=== PATIENT | female | born 1995 | race African-American/Black ===

== ENCOUNTER 2017-11-19 22:15 | Emergency (ER) | payer MEDICAID, OTHER ==
[2017-11-19 22:36] VITALS: BP 131/88
[2017-11-19] MEDS ORDERED: IBUPROFEN 800 MG TABLET PO ONE (23:13)
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
[2017-11-19] MEDS ORDERED: HYDROCODONE/ACETAMINOPHEN 5-325 MG TABLET PO ONE (23:46)
--- NOTE | 2017-11-20 00:07 | RADIOLOGY REPORT (SQ) ---
EXAM DESCRIPTION: XR FOOT 3 OR MORE VIEWS COMPLETED DATE/TME: 11/19/2017 23:12 CLINICAL HISTORY: 22 years, Female, pain and swelling to left great toe and foot COMPARISON: None. FINDINGS: 3 views of the left foot. Acute comminuted intra-articular fracture involving the mid to distal left first proximal phalanx. Normal osseous mineralization. No other fractures identified. Tarsals and metatarsals are appropriately aligned. IMPRESSION: 1. Acute comminuted intra-articular fracture involving the mid to distal left first proximal phalanx. 2011 [employer]- All Rights Reserved
== END 2017-11-20 00:20 | disposition home or self-care (01) ==
LOC: ER 22:15
DX: S92.415A Nondisplaced fracture of proximal phalanx of left great toe, initial encounter for closed fracture (principal); M79.674 Pain in right toe(s); M79.89 Other specified soft tissue disorders; W50.0XXA Accidental hit or strike by another person, initial encounter; F17.210 Nicotine dependence, cigarettes, uncomplicated
CPT/HCPCS: 99283; 73630; J3490

== ENCOUNTER 2018-09-08 16:17 | Emergency (ER) | payer MEDICAID ==
[2018-09-08] MEDS ORDERED: ACETAMINOPHEN 325 MG TABLET PO ONE (18:01)
--- NOTE | 2018-09-08 18:06 | ER Document Report ---
ED Medical Screen (RME) - General Chief Complaint: Abdominal Pain Stated Complaint: ABDOMINAL PAIN Time Seen by Provider: 09/08/18 17:47 Mode of Arrival: Ambulatory Information source: Patient TRAVEL OUTSIDE OF THE [place] IN LAST 30 DAYS: No - HPI Notes: 09/08/18 18:01 Patient is a 23-year-old female currently 4 months presents to the emergency department with report of left lower quadrant pain greater than suprapubic pain that came on this morning, somewhat crampy in nature. The patient reports associated nausea but no vomiting. She denies any flank pain or diarrhea. She states she had a bowel movement earlier today but it was a first bowel movement in 3 days. No vaginal bleeding. The patient denies any cough, congestion, fever. Minimal vaginal discharge that she states may be consistent with her state. Physical exam shows interactive alert 23-year-old female no gross distress HEENT atraumatic normocephalic Neck supple nontender Cardiovascular regular rate and rhythm without appreciable murmur gallop or rub Lungs coarse breath sounds no wheezes or rails Abdomen soft mild tender LLQ and suprapubic region. No rebound or guarding. No pulsatile mass. Back no CVA tenderness. Question if this may be an ovarian cyst, which the patient expresses concern about. Must also assess for viability and for possible placental abruption. Also question constipation as an etiology given the location and crampy nature and recent constipation as described. Ultrasound and lab work and urinalysis. Please see partner's note for further care and evaluation. 09/08/18 18:03 09/08/18 18:08 - Related Data Allergies/Adverse Reactions: No Known Allergies Allergy (Verified 12/24/15 03:39) Past Medical History - Social History Chew tobacco use (# tins/day): No Frequency of alcohol use: None Drug Abuse: None Renal/ Medical History: Denies: Hx Peritoneal Dialysis GI Medical History: Reports: Hx Gastroesophageal Reflux Disease Musculoskeltal Medical History: Reports Hx Musculoskeletal Trauma Psychiatric Medical History: Reports: Hx Anxiety, Hx Depression Traumatic Medical History: Reports: Hx Fractures - Toe Past Surgical History: Reports: Hx Oral Surgery - Dental surgery - Immunizations Hx Diphtheria, Pertussis, Tetanus Vaccination: Yes Physical Exam - Vital signs Vitals: Temp Pulse Resp BP Pulse Ox 98.8 F 103 H 18 130/59 H 98 09/08/18 16:26 09/08/18 16:26 09/08/18 16:26 09/08/18 16:26 09/08/18 16:26 Course - Vital Signs Vital signs: Temp Pulse Resp BP Pulse Ox 98.8 F 103 H 18 130/59 H 98 09/08/18 16:26 09/08/18 16:26 09/08/18 16:26 09/08/18 16:26 09/08/18 16:26
[2018-09-08 19:12] LABS: ABSOLUTE EOSINOPHILS # (AUTO) 0.1 10^3/uL (0.0-0.6); ABSOLUTE LYMPHOCYTES (AUTO) 2.8 10^3/uL (0.5-4.7); ABSOLUTE MONOCYTES (AUTO) 0.4 10^3/uL (0.1-1.4); ABSOLUTE NEUT (AUTO) 6.9 10^3/uL (1.7-8.2); BASOPHILS % (AUTO) 0.2 % (0-2); EOSINOPHILS % (AUTO) 1.2 % (0-6); HEMATOCRIT 37.8 % (36.0-47.0); MEAN CORPUSCULAR HEMOGLOBIN 32.6 pg (27.0-33.4); MEAN CORPUSCULAR HGB CONC 34.6 g/dL (32.0-36.0); MEAN CORPUSCULAR VOLUME 94 fl (80-97); PLATELET COUNT 393 10^3/uL (150-450); RED BLOOD COUNT 4.01 10^6/uL (3.72-5.28); RED CELL DISTRIBUTION WIDTH 12.4 % (11.5-14.0); SEGMENTED NEUTROPHILS % (AUTO) 67.6 % (42-78); TOTAL CELLS COUNTED % (AUTO) 100 %; WHITE BLOOD COUNT 10.2 10^3/uL (4.0-10.5)
[2018-09-08 19:23] LABS: APPEARANCE,URINE CLOUDY; BILIRUBIN,URINE NEGATIVE (NEGATIVE); GLUCOSE, URINE NEGATIVE (NEGATIVE); KETONES,URINE NEGATIVE (NEGATIVE); LEUKOCYTE ESTERASE,URINE NEGATIVE (NEGATIVE); NITRITE,URINE NEGATIVE (NEGATIVE); PROTEIN,URINE NEGATIVE (NEGATIVE); URINE SPECIFIC GRAVITY 1.026
[2018-09-08 19:24] LABS: ALANINE AMINOTRANSFERASE 63 U/L (9-52); ALKALINE PHOSPHATASE 92 U/L (38-126); ANION GAP 9 (5-19); ASPARTATE AMINO TRANSFERASE 38 U/L (14-36); BILIRUBIN,DIRECT 0.1 mg/dL (0.0-0.4); BILIRUBIN,TOTAL 0.4 mg/dL (0.2-1.3); BLOOD UREA NITROGEN 9 mg/dL (7-20); CALCIUM 10.4 mg/dL (8.4-10.2); CARBON DIOXIDE 26 mmol/L (22-30); CHLORIDE 102 mmol/L (98-107); COLOR,URINE YELLOW; GLUCOSE 84 mg/dL (75-110); LIPASE 27.8 U/L (23-300); POTASSIUM 4.7 mmol/L (3.6-5.0); SODIUM 136.7 mmol/L (137-145); TOTAL PROTEIN 7.1 g/dL (6.3-8.2)
[2018-09-08 20:42] LABS: CHLAM PCR NOT DETECTED (NOT DETECT); GON PCR NOT DETECTED (NOT DETECT)
--- NOTE | 2018-09-08 20:43 | ER Document Report ---
ED General - General Chief Complaint: Abdominal Pain Stated Complaint: ABDOMINAL PAIN Time Seen by Provider: 09/08/18 17:47 Mode of Arrival: Ambulatory Information source: Patient Notes: This is a 23-year-old female who is 4 para 3, 4 months who presents to the emergency room with left lower quadrant pain since this morning which is been sharp in nature. Patient does state that she is been constipated lately. She is taking the vitamins with iron. She denies any vaginal bleeding. She denies any nausea, vomiting or diarrhea. She denies any fever. TRAVEL OUTSIDE OF THE [place] IN LAST 30 DAYS: No - HPI Onset: This morning Onset/Duration: Gradual Quality of pain: Achy Severity: Mild Pain Level: 1 Associated symptoms: denies: Chills, Fever, Shortness of breath Exacerbated by: Denies Relieved by: Denies Similar symptoms previously: No Recently seen / treated by doctor: No - Related Data Allergies/Adverse Reactions: No Known Allergies Allergy (Verified 12/24/15 03:39) Past Medical History - General Information source: Patient - Social History Smoking Status: Current Every Day Smoker Cigarette use (# per day): Yes Chew tobacco use (# tins/day): No Frequency of alcohol use: None Drug Abuse: None Lives with: Family Family History: Reviewed & Not Pertinent Patient has suicidal ideation: No Patient has homicidal ideation: No - Medical History Medical History: Negative Renal/ Medical History: Denies: Hx Peritoneal Dialysis GI Medical History: Reports: Hx Gastroesophageal Reflux Disease Musculoskeletal Medical History: Reports Hx Musculoskeletal Trauma Psychiatric Medical History: Reports: Hx Anxiety, Hx Depression Traumatic Medical History: Reports: Hx Fractures - Toe Past Surgical History: Reports: Hx Oral Surgery - Dental surgery - Immunizations Hx Diphtheria, Pertussis, Tetanus Vaccination: Yes Review of Systems - Review of Systems Constitutional: denies: Chills, Fever EENT: No symptoms reported Cardiovascular: denies: Heart racing Respiratory: denies: Cough, Short of breath Gastrointestinal: No symptoms reported, Constipation Genitourinary: No symptoms reported Female Genitourinary: No symptoms reported Musculoskeletal: No symptoms reported Skin: No symptoms reported Hematologic/Lymphatic: No symptoms reported Neurological/Psychological: No symptoms reported Physical Exam - Vital signs Vitals: Temp Pulse Resp BP Pulse Ox 98.8 F 103 H 18 130/59 H 98 09/08/18 16:26 09/08/18 16:26 09/08/18 16:26 09/08/18 16:26 09/08/18 16:26 Notes: Physical exam: GENERAL: Patient is alert and oriented x3, no acute distress. Her blood pressu re is 130/59, pulse 103, respiratory rate 18, O2 sat 98%. HEAD: Atraumatic, normocephalic. EYES: Pupils equal round and reactive to light, extraocular movements intact, sclera anicteric, conjunctiva are normal. ENT: TMs normal, nares patent, oropharynx clear without exudates. Moist mucous membranes. NECK: Normal range of motion, supple without obvious mass or JVD. LUNGS: Breath sounds clear to auscultation bilaterally and equal. No wheezes rales or rhonchi. HEART: Regular rate and rhythm without murmurs, rubs or gallops. ABDOMEN: Soft, consistent with 16 weeks , normoactive bowel sounds. No tenderness to palpation. No guarding, no rebound. EXTREMITIES: No edema. NEUROLOGICAL: Cranial nerves II through XII grossly intact. Normal speech, moving all extremities. PSYCH: Normal mood, normal affect. SKIN: Warm, Dry, normal turgor, no rashes or lesions noted. Course - Re-evaluation Re-evalutation: 09/08/18 21:58 I discussed the results of the ultrasound with the patient. On repeat exam, her abdomen is soft and nontender. The patient is very hungry and asking me whether she can Eat. - Vital Signs Vital signs: Temp Pulse Resp BP Pulse Ox 98.4 F 80 18 130/64 H 100 09/08/18 22:23 09/08/18 22:23 09/08/18 22:23 09/08/18 22:23 09/08/18 22:23 - Laboratory Result Diagrams: 09/08/18 18:48 09/08/18 18:48 Laboratory results interpreted by me: 09/08/18 09/08/18 18:48 18:48 Sodium 136.7 L Creatinine 0.50 L Calcium 10.4 H AST 38 H ALT 63 H Urine Urobilinogen 2.0 H Urine Ascorbic Acid 20 H - Diagnostic Test Radiology reviewed: Reports reviewed - Ultrasound shows a 12-week gestational f etus with a good heartbeat of 155 Discharge - Discharge Clinical Impression: Constipation, Round ligament pain Condition: Stable Disposition: HOME, SELF-CARE Instructions: Constipation ([facility]), Pelvic Pain in and Round Ligament Pain ([facility]) Additional Instructions: As we discussed, the ultrasound showed a 12-week gestational baby. There is a good heartbeat. There is no obvious ovarian cyst. See the instruction sheet on round ligament pain as well as constipation. Your blood work looked quite good. I want you to follow-up with your OB doctor as planned. Return to the emergency room for worsening pain or bleeding Prescriptions: Polyethylene Glycol 3350 [Miralax Powder 17 gm/Packet] 1 packet PO DAILY #7 pkg
--- NOTE | 2018-09-08 21:38 | RADIOLOGY REPORT (SQ) ---
EXAM DESCRIPTION: US LESS THAN 14 WEEKS COMPLETED DATE/TME: 09/08/2018 17:58 CLINICAL HISTORY: 23 years, Female, 4 months , LLQ pain COMPARISON: None. TECHNIQUE: Transabdominal first trimester ultrasound LIMITATIONS: None. FINDINGS: The uterus measures 12.8 x 9.8 x 10.2 cm. There is a single, live intrauterine gestation. Heart tones obtained at 155 bpm. Current ultrasound age is 12 weeks 1 day. Mean crown-rump length is 5.34 cm. The maternal right ovary is not well seen likely due to its position in the pelvis. Maternal left ovary measures 4 x 2.2 cm. Normal flow to the left ovary. No adnexal cyst or mass. No free fluid IMPRESSION: Single, live intrauterine gestation with current ultrasound age 12 weeks 1 day. Nonemergent follow-up recommended copyright 2010 [employer]- All Rights Reserved
[2018-09-08 22:26] VITALS: BP 130/64
== END 2018-09-08 22:25 | disposition home or self-care (01) ==
LOC: ER 16:17
DX: O26.892 Other specified pregnancy related conditions, second trimester (principal); R10.9 Unspecified abdominal pain; R10.32 Left lower quadrant pain; K59.00 Constipation, unspecified; O99.332 Smoking (tobacco) complicating pregnancy, second trimester; Z3A.16 16 weeks gestation of pregnancy
CPT/HCPCS: 99284; 36415; 87086; 83690; 85025; 80053; 81001; 87491; 87591; 76801; J3490

== ENCOUNTER 2018-10-11 18:23 | Emergency (ER) | payer MEDICAID ==
[2018-10-11] MEDS ORDERED: ACETAMINOPHEN 325 MG TABLET PO ONE (18:52)
--- NOTE | 2018-10-11 19:17 | RADIOLOGY REPORT (SQ) ---
EXAM DESCRIPTION: FINGER LEFT COMPLETED DATE/TIME: 10/11/2018 7:08 pm REASON FOR STUDY: L thumb pain, fell/fighting COMPARISON: None. NUMBER OF VIEWS: Three views. TECHNIQUE: AP, lateral, and oblique images acquired of the left thumb LIMITATIONS: None. FINDINGS: MINERALIZATION: Normal. BONES: Acute avulsion fracture, radial aspect left thumb proximal phalanx base, along the ulnar jacques ateral ligament attachment at the 1st MCP joint. SOFT TISSUES: No soft tissue swelling. No foreign body. OTHER: No other significant finding. IMPRESSION: Acute avulsion fracture, radial aspect left thumb proximal phalanx base, along the ulna r collateral ligament attachment at the 1st MCP joint. TECHNICAL DOCUMENTATION: JOB ID: [id number] [employer]- All Rights Reserved Reading location - IP/workstation name: [email or web address]
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
[2018-10-11 19:46] VITALS: BP 126/61
== END 2018-10-11 19:40 | disposition home or self-care (01) ==
LOC: ER 18:23
DX: S62.515A Nondisplaced fracture of proximal phalanx of left thumb, initial encounter for closed fracture (principal); S63.642A Sprain of metacarpophalangeal joint of left thumb, initial encounter; W19.XXXA Unspecified fall, initial encounter; Y93.89 Activity, other specified; F17.200 Nicotine dependence, unspecified, uncomplicated
CPT/HCPCS: 99283; 73140; 29125; J3490

== ENCOUNTER 2019-03-02 23:48 | Outpatient (CLI) | payer MEDICAID ==
[2019-03-03 01:00] LABS: APPEARANCE,URINE SLIGHTLY-CLOUDY; BILIRUBIN,URINE SMALL (NEGATIVE); GLUCOSE, URINE 50 mg/dL (NEGATIVE); KETONES,URINE TRACE mg/dL (NEGATIVE); LEUKOCYTE ESTERASE,URINE LARGE (NEGATIVE); NITRITE,URINE NEGATIVE (NEGATIVE); PROTEIN,URINE 30 mg/dL (NEGATIVE); URINE SPECIFIC GRAVITY 1.034
[2019-03-03 01:04] LABS: COLOR,URINE YELLOW
[2019-03-03 01:22] LABS: URINE AMPHETAMINES SCREEN NEGATIVE; URINE BARBITURATES SCREEN NEGATIVE; URINE BENZODIAZEPINES SCREEN NEGATIVE; URINE MARIJUANA (THC) SCREEN NEGATIVE; URINE METHADONE SCREEN NEGATIVE; URINE PHENCYCLIDINE SCREEN NEGATIVE
[2019-03-03 01:24] LABS: URINE COCAINE SCREEN UNCONFIRMED POSITIVE
[2019-03-03 01:36] LABS: ABSOLUTE EOSINOPHILS # (AUTO) 0.2 10^3/uL (0.0-0.6); ABSOLUTE LYMPHOCYTES (AUTO) 2.9 10^3/uL (0.5-4.7); ABSOLUTE MONOCYTES (AUTO) 0.6 10^3/uL (0.1-1.4); ABSOLUTE NEUT (AUTO) 6.6 10^3/uL (1.7-8.2); BASOPHILS % (AUTO) 0.1 % (0-2); EOSINOPHILS % (AUTO) 1.5 % (0-6); HEMATOCRIT 32.1 % (36.0-47.0); MEAN CORPUSCULAR HEMOGLOBIN 31.6 pg (27.0-33.4); MEAN CORPUSCULAR HGB CONC 34.3 g/dL (32.0-36.0); MEAN CORPUSCULAR VOLUME 92 fl (80-97); MONOCYTES % (AUTO) 6.2 % (3-13); PLATELET COUNT 422 10^3/uL (150-450); RED BLOOD COUNT 3.48 10^6/uL (3.72-5.28); RED CELL DISTRIBUTION WIDTH 12.6 % (11.5-14.0); SEGMENTED NEUTROPHILS % (AUTO) 64.2 % (42-78); TOTAL CELLS COUNTED % (AUTO) 100 %; WHITE BLOOD COUNT 10.3 10^3/uL (4.0-10.5)
[2019-03-03 03:23] LABS: CHLAM PCR NOT DETECTED (NOT DETECT)
[2019-03-06 07:05] LABS: HEPATITIS C VIRUS AB >11.0 s/co ratio (0.0-0.9); HEPATITS B SURFACE ANTIGEN Negative (Negative)
== END 2019-03-03 01:42 | disposition home or self-care (01) ==
LOC: LC 23:48
PROVIDERS: ATTEND Obstetrics & Gynecology Gynecology
PROC: 4A1HXCZ Monitoring of Products of Conception, Cardiac Rate, External Approach (ICD-10-PCS; principal; 2019-03-02)
DX: O47.1 False labor at or after 37 completed weeks of gestation (principal); Z3A.37 37 weeks gestation of pregnancy
CPT/HCPCS: 59025; 86900; 86901; 36415; 86850; 85025; 81005; 86762; 86592; 87340; 86701; 80307; 80353; 87491; 87591; 86803; 86804; 84112; G0480

== ENCOUNTER 2019-03-21 03:07 | Inpatient (IN) | payer MEDICAID ==
[2019-03-21] MEDS ORDERED: LIDOCAINE 1% INJ-PF (10 MG/ML) 30 ML SDV ONE ×2 (03:23→03:28)
[2019-03-21] MEDS ORDERED: OXYTOCIN 10 UNIT/ML VIAL ONE ×2 (03:23→03:28)
[2019-03-21] MEDS ORDERED: OXYTOCIN/NORMAL SALINE 0 UNIT/0 ML RTUINJ ONE (03:23)
[2019-03-21] MEDS ORDERED: MISOPROSTOL 0.2 MG TABLET ONE ×2 (03:23→03:28)
[2019-03-21] MEDS ORDERED: PENICILLIN G-K 5 MILLION UNIT VIAL ONE (03:28)
[2019-03-21] MEDS ORDERED: OXYTOCIN/NORMAL SALINE 20 UNIT/1,000 ML RTUINJ ONE (03:28)
[2019-03-21 03:55] LABS: ABSOLUTE EOSINOPHILS # (AUTO) 0.1 10^3/uL (0.0-0.6); ABSOLUTE LYMPHOCYTES (AUTO) 2.5 10^3/uL (0.5-4.7); ABSOLUTE MONOCYTES (AUTO) 0.7 10^3/uL (0.1-1.4); ABSOLUTE NEUT (AUTO) 6.3 10^3/uL (1.7-8.2); BASOPHILS % (AUTO) 0.2 % (0-2); EOSINOPHILS % (AUTO) 1.1 % (0-6); HEMATOCRIT 34.4 % (36.0-47.0); HEMOGLOBIN 11.9 g/dL (12.0-15.5); LYMPHOCYTES % (AUTO) 25.5 % (13-45); MEAN CORPUSCULAR HEMOGLOBIN 31.6 pg (27.0-33.4); MEAN CORPUSCULAR HGB CONC 34.6 g/dL (32.0-36.0); MEAN CORPUSCULAR VOLUME 91 fl (80-97); MONOCYTES % (AUTO) 7.4 % (3-13); PLATELET COUNT 436 10^3/uL (150-450); RED BLOOD COUNT 3.76 10^6/uL (3.72-5.28); RED CELL DISTRIBUTION WIDTH 12.5 % (11.5-14.0); SEGMENTED NEUTROPHILS % (AUTO) 65.8 % (42-78); TOTAL CELLS COUNTED % (AUTO) 100 %; WHITE BLOOD COUNT 9.6 10^3/uL (4.0-10.5)
--- NOTE | 2019-03-21 04:40 | Admission Physical ---
Datetime Report Generated by CPN: 03/21/2019 04:40 CURRENT ADMISSION Chief Complaint: Uterine Contractions Indication for Induction: Not Applicable Admit Impression : Term, Intrauterine Admit Plan: Initiate Labor Protocol ALLERGIES Medication Allergies: No Medication Allergies: No Known Allergies (03/03/2019) Latex: No Latex Allergies Food Allergies: none Environmental Allergies: none OBSTETRICAL HISTORY EDC: 03/21/2019 00:00 : 3 Para: 2 Gestational Diabetes: No Rh Sensitization: No Incompetent Cervix: No MORENITA: No Infertility: No ART Treatment: No Uterine Anomaly: No IUGR: No Hx Previous C/S: No Macrosomia: No Hx Loss/Stillborn: No PIH: No Hx : No Placenta Previa/Abruption: No Depression/PP Depression: No PTL/PROM: No Post Hemorrhage: No Obstetrical History Comments: - 2013 9lbs 3 oz G2- 2015 8lbs 8 oz G3- current, [facility], limited care SEE RECORDS Alcohol: No Marijuana : No Cocaine: Yes Other Illicit Drugs: No Cigarettes: Current Some Day Smoker. [id number] MEDICAL HISTORY Diabetes: No Blood Transfusion: No Pulmonary Disease (Asthma, TB): No Breast Disease: No Hypertension: No Certified Retinal Angiographer Surgery: No Heart Disease: No Hosp/Surgery: No Autoimmune Disorder: No Anesthetic Complications: No Kidney Disease: No Abnormal Pap Smear: Yes Neuro/Epilepsy: No Psychiatric Disorders: No Other Medical Diseases: No Hepatitis/Liver Disease: Yes Significant Family History: No Varicosities/Phlebitis: No Trauma/Violence : No Thyroid Dysfunction: No Medical History Comments: hep c positive INFECTIOUS HISTORY Gonorrhea: No Genital Herpes: No Chlamydia: No Tuberculosis: No Syphilis: No Hepatitis: Yes HIV/AIDS Exposure: No Rash or Viral Illness: No HPV: Yes Infectious History Comments: HPV-2019 PHYSICAL EXAM General: Normal HEENT: Normal Neurologic: Normal Thyroid: Normal Heart: Normal Lungs: Normal Breast: Deferred Back: Normal Abdomen: Normal Genitourinary Exam: Normal Extremities: Normal DTRs: Normal Pelvic Type: Adequate FETUS A EGA: 40.0 PLANS FOR LABOR AND DELIVERY Labor and Delivery: None Pain Management: None Feeding Preference: Both Benefit of Breast Feed Discussed: Yes Circumcision: Yes INFORMED CONSENT Signature: with User ID: [email or web address]
[2019-03-21] MEDS ORDERED: PROMETHAZINE HCL INJ 25 MG/1 ML VIAL IV PRN (04:46)
[2019-03-21] MEDS ORDERED: DIPHENHYDRAMINE HCL 25 MG CAPSULE PO PRN (04:46)
[2019-03-21] MEDS ORDERED: OXYTOCIN/NORMAL SALINE 20 UNIT/1,000 ML RTUINJ IV PRN (04:46)
[2019-03-21] MEDS ORDERED: NA PHOS,M-B/NA PHOS,DI-BA (ADULT) 133 ML ENEMA PR PRN (04:46)
[2019-03-21] MEDS ORDERED: DIPH/PERTUSS(ACELL)/TETANUS VAC/PF 0.5 ML SYR (>=10YO) IM PRN (04:46)
[2019-03-21] MEDS ORDERED: BENZOCAINE/MENTHOL AEROSOL SPRAY 56 ML TOP PRN (04:46)
[2019-03-21] MEDS ORDERED: DIBUCAINE 1% OINTMENT 56 GM TP PRN (04:46)
[2019-03-21] MEDS ORDERED: PROMETHAZINE HCL 25 MG SUPP.RECT PR PRN (04:46)
[2019-03-21] MEDS ORDERED: PSEUDOEPHEDRINE HCL 30 MG TABLET PO PRN (04:46)
[2019-03-21] MEDS ORDERED: ZOLPIDEM TARTRATE 5 MG TABLET PO PRN (04:46)
[2019-03-21] MEDS ORDERED: ACETAMINOPHEN 650 MG SUPP.RECT PR PRN (04:46)
[2019-03-21] MEDS ORDERED: MEASLES,MUMPS&RUBELLA VACC/PF 0.5 ML VIAL SUBCUT PRN (04:46)
[2019-03-21] MEDS ORDERED: PROMETHAZINE HCL 25 MG TABLET PO PRN (04:46)
[2019-03-21] MEDS ORDERED: GLYCERIN/WITCH HAZEL LEAF 1 EACH MED..WIPE TP PRN (04:46)
[2019-03-21] MEDS ORDERED: MAGNESIUM HYDROXIDE SUSP 30 ML UDCUP PO PRN (04:46)
[2019-03-21] MEDS ORDERED: ACETAMINOPHEN WITH CODEINE #3 TABLET ONE (04:52)
[2019-03-21] MEDS ORDERED: IBUPROFEN 800 MG TABLET ONE (04:52)
[2019-03-21] MEDS: IBUPROFEN 800 MG TABLET PO SCH ×3 (05:29→23:29)
--- NOTE | 2019-03-21 06:21 | Delivery Summary ---
Del Sum A-C Datetime Report Generated by CPN: 03/21/2019 06:20 DELIVERY PERSONNEL DELIVERY PERSONNEL: [id number] Delivery Doctor:: Jose Garsia MD Labor and Delivery Nurse:: Kenyatta Sun RNregular senior care provider Nurse:: Nila Rich RN Nursery Nurse:: Jolene Tabares RN MATERNAL INFORMATION Delivery Anesthesia: None Medications After Delivery: Pitocin Bolus-Please Comment; Pitocin Drip 20 Units/1000ml NSS Delivery QBL: 200 Maternal Complications: Precipitous Labor (<3hrs) Other Maternal Complications: drug abuse LABOR SUMMARY EDC: 03/21/2019 00:00 No. Babies in Womb: 1 Attempted: No Labor Anesthesia: None LABOR INFORMATION Reason for Induction: Not Applicable Onset of Labor: 03/21/2019 03:00 Complete Dilatation: 03/21/2019 04:28 Oxytocin: N/A Group B Beta Strep: unknown Antibiotics # of Doses: 1 Antibiotics Time of Last Dose: 337 Name of Antibiotic Given: PCN Steroids Given: None Reason Steroids Not Administered: Not Applicable MEMBRANES Membranes Rupture Method: Spontaneous Rupture of Membranes: 03/21/2019 04:29 Length of Rupture (hr): 0.05 Amniotic Fluid Color: Particulate Meconium Amniotic Fluid Amount: Moderate Amniotic Fluid Odor: Normal STAGES OF LABOR Stage 1 hr: 1 Stage 1 min: 28 Stage 2 hr: 0 Stage 2 min: 4 Stage 3 hr: 0 Stage 3 min: 2 Total Time in Labor hr: 1 Total Time in Labor min: 34 VAGINAL DELIVERY Episiotomy: None Laceration #1: None Laceration Repair: Not Applicable Sponge Count Correct: N/A Sharps Count Correct: N/A CSECTION DELIVERY Primary Indication: N/A Secondary Indication: N/A CSection Incidence: N/A Labor: N/A Elective: N/A CSection Incision: N/A BABY A INFORMATION Infant Delivery Date/Time: 03/21/2019 04:32 Method of Delivery: Vaginal Born in Route : No : N/A Forceps: N/A Vacuum Extraction: N/A Shoulder Dystocia : No PRESENTATION/POSITION BABY A Presentation: Cephalic Cephalic Presentation: Vertex Vertex Position: Right Occipital Anterior Breech Presentation: N/A PLACENTA INFORMATION BABY A Placenta Delivery Time : 03/21/2019 04:34 Placenta Method of Delivery: Spontaneous Placenta Status: Delivered SCORES BABY A Heart Rate 1 min: >100 bpm Resp Effort 1 min: Good Cry Reflex Irritability 1 min: Cough or Sneeze or Pulls Away Muscle Tone 1 min: Active Motion Color 1 min: Blue/Pale Resuscitation Effort 1 min: Tactile Stimulation SCORE 1 MIN: 8 Heart Rate 5 min: >100 bpm Resp Effort 5 min: Good Cry Reflex Irritability 5 min: Cough or Sneeze or Pulls Away Muscle Tone 5 min: Active Motion Color 5 min: Body [place], Extremities Blue Resuscitation Effort 5 min: Tactile Stimulation SCORE 5 MIN: 9 INFANT INFORMATION BABY A Gestational Age at Delivery: 40.0 Gestational Status: Full Term- 39- 40.6 Weeks Infant Outcome : Liveborn Infant Condition : Stable Infant Sex: Male IDENTIFICATION BABY A Verification Date/Time: 03/21/2019 05:36 ID Band Number: [id number] Mother's Name Verified: Yes Infant RN Verifying : Tony Sun RN and C Raysa RN WEIGHT/LENGTH BABY A Infant Birthweight (gm): 3603 Weight (lb): 7 Infant Weight (oz): 15 Length (in): 20.50 Length (cm): 52.07 CORD INFORMATION BABY A No. Cord Vessels: 3 Nuchal Cord : N/A Cord Blood Taken: Yes-For Storage (Mom's Blood type +) Infant Suction: None ASSESSMENT BABY A Complications: None Physical Findings at Delivery: Within Normal Limits Respirations: Appears Normal Skin to Skin: Yes Skin to Skin Time (min): 60 Transferred To: Remains with Mother BABY B INFORMATION : N/A SIGNATURES Signature: with User ID: [email or web address]
[2019-03-21 07:42] LABS: APPEARANCE,URINE SLIGHTLY-CLOUDY; BILIRUBIN,URINE NEGATIVE (NEGATIVE); COLOR,URINE YELLOW; GLUCOSE, URINE NEGATIVE (NEGATIVE); KETONES,URINE NEGATIVE (NEGATIVE); LEUKOCYTE ESTERASE,URINE MODERATE (NEGATIVE); NITRITE,URINE NEGATIVE (NEGATIVE); PROTEIN,URINE 30 mg/dL (NEGATIVE); URINE SPECIFIC GRAVITY 1.012; UROBILINOGEN,URINE NEGATIVE mg/dL (<2.0)
[2019-03-21 08:02] LABS: URINE AMPHETAMINES SCREEN NEGATIVE; URINE BARBITURATES SCREEN NEGATIVE; URINE BENZODIAZEPINES SCREEN NEGATIVE; URINE COCAINE SCREEN NEGATIVE; URINE MARIJUANA (THC) SCREEN NEGATIVE; URINE METHADONE SCREEN NEGATIVE; URINE PHENCYCLIDINE SCREEN NEGATIVE
[2019-03-21] MEDS: PRENATAL VITAMIN W DHA CAPSULE PO SCH (09:04)
[2019-03-21] MEDS: DOCUSATE SODIUM 100 MG CAPSULE PO SCH ×2 (09:04→17:09)
[2019-03-21] MEDS: FAMOTIDINE 20 MG TABLET PO SCH ×2 (09:04→23:29)
[2019-03-21] MEDS: ACETAMINOPHEN WITH CODEINE #3 TABLET PO PRN ×4 (09:04→23:36)
[2019-03-21] MEDS: SENNOSIDES/DOCUSATE 8.6-50 MG 1 EACH TABLET PO SCH (09:04)
[2019-03-21] MEDS: FERROUS SULFATE 325 MG TABLET PO SCH ×2 (09:04→17:09)
[2019-03-22] MEDS: IBUPROFEN 800 MG TABLET PO SCH ×3 (05:33→22:38)
[2019-03-22] MEDS: ACETAMINOPHEN WITH CODEINE #3 TABLET PO PRN ×4 (06:32→20:18)
[2019-03-22 08:08] LABS: HEMATOCRIT 30.8 % (36.0-47.0); HEMOGLOBIN 10.6 g/dL (12.0-15.5); MEAN CORPUSCULAR HEMOGLOBIN 31.9 pg (27.0-33.4); MEAN CORPUSCULAR HGB CONC 34.4 g/dL (32.0-36.0); MEAN CORPUSCULAR VOLUME 93 fl (80-97); PLATELET COUNT 435 10^3/uL (150-450); RED BLOOD COUNT 3.32 10^6/uL (3.72-5.28); RED CELL DISTRIBUTION WIDTH 12.6 % (11.5-14.0); WHITE BLOOD COUNT 8.9 10^3/uL (4.0-10.5)
[2019-03-22] MEDS: SENNOSIDES/DOCUSATE 8.6-50 MG 1 EACH TABLET PO SCH (09:57)
[2019-03-22] MEDS: DOCUSATE SODIUM 100 MG CAPSULE PO SCH ×2 (09:57→17:26)
[2019-03-22] MEDS: PRENATAL VITAMIN W DHA CAPSULE PO SCH (09:57)
[2019-03-22] MEDS: FERROUS SULFATE 325 MG TABLET PO SCH ×2 (09:57→17:26)
[2019-03-22] MEDS: FAMOTIDINE 20 MG TABLET PO SCH ×2 (09:57→22:38)
--- NOTE | 2019-03-22 17:48 | PDOC PROGRESS REPORT ---
Subjective-OB Progress Note for:: 03/22/19 Subjective: 24yo G3 now P3 s/p ppd1. Ambulating and voiding without difficulty. Reports pain well controlled with medication. Denies any concerns at this time Physical Exam (OB) Vital Signs: Temp Pulse Resp BP Pulse Ox 98.4 F 71 16 115/60 100 03/22/19 08:03 03/22/19 08:03 03/22/19 08:03 03/22/19 08:03 03/22/19 08:03 Intake & Output 03/21/19 03/22/19 03/23/19 06:59 06:59 06:59 Intake Total 240 Balance 240 - General General Appearance: Appears well In distress: None - PIH/Pre-Eclampsia DTR's: 1 + Clonus: Negative Headache: Absent Epigastric Pain: No Visual Changes: No - Episiotomy/Laceration Site Condition: N/A - Lochia Lochia Amount: Scant < 10 ml Lochia Color: Rubra/Red - Abdomen Description: Soft, Round Hernia Present: No Fundal Description: Firm, Midline Fundal Height: u/u - u/2 - Respiratory Respiratory Status: No respiratory distress - Extremities Upper extremity: Normal inspection Lower extremities: Normal inspection - Neurological Cognition: Inattentive Orientation: AAOx4 Speech: Normal Objective-Diagnostic Laboratory: 03/22/19 07:29 03/22/19 07:29 WBC 8.9 RBC 3.32 L Hgb 10.6 L Hct 30.8 L MCV 93 MCH 31.9 MCHC 34.4 RDW 12.6 Plt Count 435 Assessment and Plan(PN) - Assessment and Plan (1) Drug use affecting Qualifiers: Trimester: unspecified trimester Qualified Code(s): O99.320 - Drug use complicating , unspecified trimester Is this a current diagnosis for this admission?: Yes Plan: discharge planning placed. Cessation encouraged (2) Smoker Is this a current diagnosis for this admission?: Yes Plan: cessation encouraged (3) Acute blood loss anemia Is this a current diagnosis for this admission?: Yes Plan: Increase dietary iron and FeSO4 BID (4) Delivery normal Is this a current diagnosis for this admission?: Yes Plan: routine pp care. Continue to monitor for s/s of infection (5) Hepatitis C Qualifiers: Viral hepatitis chronicity: unspecified Is this a current diagnosis for this admission?: Yes Plan: continue antepartum plan of care and visit as scheduled (6) Qualifiers: Weeks of gestation: 40 weeks Qualified Code(s): Z3A.40 - 40 weeks gestation of Is this a current diagnosis for this admission?: Yes Plan: delivered Plan:: routine pp care - Time Spent with Patient Time with patient: Less than 15 minutes Medications reviewed and adjusted accordingly: Yes - Disposition Anticipated Discharge: Home Within: within 24 hours
[2019-03-23] MEDS: ACETAMINOPHEN WITH CODEINE #3 TABLET PO PRN ×4 (00:31→14:25)
[2019-03-23] MEDS: IBUPROFEN 800 MG TABLET PO SCH ×2 (05:25→13:39)
--- NOTE | 2019-03-23 10:20 | PDOC PROGRESS REPORT ---
Subjective-OB Progress Note for:: 03/23/19 Subjective: Doing well, not sure if baby is going home and she does not want to go home without baby, friend at BS, eating well, ambulating, breast and bottle feeding Physical Exam (OB) Vital Signs: Temp Pulse Resp BP Pulse Ox 98.1 F 81 20 119/74 100 03/23/19 07:38 03/23/19 07:38 03/23/19 07:38 03/23/19 07:38 03/23/19 07:38 Intake & Output 03/22/19 03/23/19 03/24/19 06:59 06:59 06:59 Intake Total 240 Output Total 500 Balance 240 -500 - PIH/Pre-Eclampsia DTR's: 1 + Clonus: Negative Headache: Absent Epigastric Pain: No Visual Changes: No - Dressing Removed: Yes - Lochia Lochia Amount: Scant < 10 ml Lochia Color: Rubra/Red - Abdomen Description: Soft Hernia Present: No Fundal Description: Firm, Midline Fundal Height: u/u - u/2 Objective-Diagnostic Laboratory: 03/22/19 07:29 Assessment and Plan(PN) - Assessment and Plan (1) Drug use affecting Qualifiers: Trimester: unspecified trimester Qualified Code(s): O99.320 - Drug use complicating , unspecified trimester Is this a current diagnosis for this admission?: Yes (2) Smoker Is this a current diagnosis for this admission?: Yes (4) Hepatitis C Qualifiers: Viral hepatitis chronicity: unspecified Is this a current diagnosis for this admission?: Yes (6) Acute blood loss anemia Is this a current diagnosis for this admission?: Yes (7) Delivery normal Is this a current diagnosis for this admission?: Yes - Time Spent with Patient Time with patient: Less than 15 minutes Medications reviewed and adjusted accordingly: Yes - Disposition Anticipated Discharge: Home Within: within 24 hours
[2019-03-23] MEDS: PRENATAL VITAMIN W DHA CAPSULE PO SCH (10:24)
[2019-03-23] MEDS: FAMOTIDINE 20 MG TABLET PO SCH (10:24)
[2019-03-23] MEDS: SENNOSIDES/DOCUSATE 8.6-50 MG 1 EACH TABLET PO SCH (10:24)
[2019-03-23] MEDS: DOCUSATE SODIUM 100 MG CAPSULE PO SCH (10:24)
[2019-03-23] MEDS: FERROUS SULFATE 325 MG TABLET PO SCH (10:24)
--- NOTE | 2019-03-23 10:27 | PDOC DISCHARGE SUMMARY ---
Impression - Admit/DC Date/PCP Admission Date/Primary Care Provider: 03/21/19 03:36 SINCERE HANNA MD Discharge Date: 03/23/19 - Discharge Diagnosis (1) Drug use affecting Is this a current diagnosis for this admission?: Yes (2) Smoker Is this a current diagnosis for this admission?: Yes (4) Hepatitis C Is this a current diagnosis for this admission?: Yes (6) Acute blood loss anemia Is this a current diagnosis for this admission?: Yes (7) Delivery normal Is this a current diagnosis for this admission?: Yes - Additional Information Discharge Diet: As Tolerated, Regular Discharge Activity: Activity As Tolerated, No Lifting Over 10 Pounds, No Lifting/Push/Pulling, Pelvic Rest Referrals: SINCERE HANNA MD [Primary Care Provider] - 04/18/19 1:30 pm Prescriptions: Ibuprofen [Motrin 800 mg Tablet] 800 mg PO Q8 #30 tablet Home Medications: Ibuprofen [Motrin 800 mg Tablet] 800 mg PO Q8 #30 tablet 03/23/19 HPI Gestational Age: 40 Reason(s) for Admission: Onset of Labor Procedures: Ultrasound Intrapartum Procedure(s): Spontaneous Vaginal Delivery - drug abuse during , precipitous labor, male infant, 01/27 Hospital Course Hospital Course: routine Results Laboratory Results: WBC 8.9 10^3/uL (4.0-10.5) 03/22/19 07:29 RBC 3.32 10^6/uL (3.72-5.28) L 03/22/19 07:29 Hgb 10.6 g/dL (12.0-15.5) L 03/22/19 07:29 Hct 30.8 % (36.0-47.0) L 03/22/19 07:29 MCV 93 fl (80-97) 03/22/19 07:29 MCH 31.9 pg (27.0-33.4) 03/22/19 07:29 MCHC 34.4 g/dL (32.0-36.0) 03/22/19 07:29 RDW 12.6 % (11.5-14.0) 03/22/19 07:29 Plt Count 435 10^3/uL (150-450) 03/22/19 07:29 Lymph % (Auto) 25.5 % (13-45) 03/21/19 03:44 [place] % (Auto) 7.4 % (3-13) 03/21/19 03:44 Eos % (Auto) 1.1 % (0-6) 03/21/19 03:44 Baso % (Auto) 0.2 % (0-2) 03/21/19 03:44 Absolute Neuts (auto) 6.3 10^3/uL (1.7-8.2) 03/21/19 03:44 Absolute Lymphs (auto) 2.5 10^3/uL (0.5-4.7) 03/21/19 03:44 Absolute Monos (auto) 0.7 10^3/uL (0.1-1.4) 03/21/19 03:44 Absolute Eos (auto) 0.1 10^3/uL (0.0-0.6) 03/21/19 03:44 Absolute Basos (auto) 0.0 10^3/uL (0.0-0.2) 03/21/19 03:44 Seg Neutrophils % 65.8 % (42-78) 03/21/19 03:44 Urine Color YELLOW 03/21/19 06:30 Urine Appearance SLIGHTLY-CLOUDY 03/21/19 06:30 Urine pH 7.0 (5.0-9.0) 03/21/19 06:30 Ur Specific [place] 1.012 03/21/19 06:30 Urine Protein 30 mg/dL (NEGATIVE) H 03/21/19 06:30 Urine Glucose (UA) NEGATIVE mg/dL (NEGATIVE) 03/21/19 06:30 Urine Ketones NEGATIVE mg/dL (NEGATIVE) 03/21/19 06:30 Urine Blood LARGE (NEGATIVE) H 03/21/19 06:30 Urine Nitrite NEGATIVE (NEGATIVE) 03/21/19 06:30 Urine Bilirubin NEGATIVE (NEGATIVE) 03/21/19 06:30 Urine Urobilinogen NEGATIVE mg/dL (<2.0) 03/21/19 06:30 Ur Leukocyte Esterase MODERATE (NEGATIVE) H 03/21/19 06:30 Urine Ascorbic Acid NEGATIVE (NEGATIVE) 03/21/19 06:30 Urine Opiates Screen UNCONFIRMED POSITIVE 03/21/19 06:30 Urine Methadone Screen NEGATIVE 03/21/19 06:30 Ur Barbiturates Screen NEGATIVE 03/21/19 06:30 Ur Phencyclidine Scrn NEGATIVE 03/21/19 06:30 Ur Amphetamines Screen NEGATIVE 03/21/19 06:30 U Benzodiazepines Scrn NEGATIVE 03/21/19 06:30 Urine Cocaine Screen NEGATIVE 03/21/19 06:30 U Marijuana (THC) Screen NEGATIVE 03/21/19 06:30 RPR NONREACTIVE (NONREACTIVE) 03/21/19 03:44 Blood Type B POSITIVE 03/21/19 03:44 Antibody Screen NEGATIVE 03/21/19 03:44 Plan Health Concerns: Hep C +, smoker, cocaine use Plan of Treatment: stop smoking and drug use Time Spent: Less than 30 Minutes
[2019-03-23 13:18] VITALS: BP 122/64
== END 2019-03-23 16:45 | disposition home or self-care (01) | DRG 806 ==
LOC: LC 03:07 → LR 03:36 → 2S 06:46
PROVIDERS: ADMIT Obstetrics & Gynecology Gynecology; ATTEND Obstetrics & Gynecology Gynecology
PROC: 10E0XZZ Delivery of Products of Conception, External Approach (ICD-10-PCS; principal; 2019-03-21)
DX: O62.3 Precipitate labor (principal); O98.42 Viral hepatitis complicating childbirth; Z37.0 Single live birth; D62 Acute posthemorrhagic anemia; O90.81 Anemia of the puerperium; O99.334 Smoking (tobacco) complicating childbirth; B19.20 Unspecified viral hepatitis C without hepatic coma; F17.210 Nicotine dependence, cigarettes, uncomplicated; Z3A.40 40 weeks gestation of pregnancy
CPT/HCPCS: 36415; 80307; 81005; 85025; 85027; 86592; 86850; 86900; 86901; 88307; J2540; J2590; J3490

== ENCOUNTER 2020-02-15 09:24 | Emergency (ER) | payer SELFPAY ==
[2020-02-15] MEDS ORDERED: ONDANSETRON HCL INJ/PF 4 MG/2 ML SDV IV ONE (11:24)
--- NOTE | 2020-02-15 12:20 | ER Document Report ---
ED GI/ - General Chief Complaint: Abdominal Pain Stated Complaint: LOWER BACK PAIN/LOWER ABDOMINAL PAIN Time Seen by Provider: 02/15/20 11:03 Primary Care Provider: SINCERE HANNA MD [ACTIVE STAFF] - Follow up as needed Notes: CHIEF COMPLAINT: Right upper quadrant abdominal pain HPI: 24-year-old female presenting to the emergency department complaining of 2 to 3 days of constant right upper quadrant pain that seems to radiate into the back. No dysuria. No fever. Did have some nausea vomiting that began last night into today. Reports worsening discomfort with eating. No shortness of breath. ROS: See HPI - all other systems were reviewed and are otherwise negative Constitutional: no fever Eyes: no drainage, no blurred vision ENT: no runny nose, no sore throat Cardiovascular: no chest pain Resp: no SOB, no cough GI: + vomiting, no diarrhea, + abdominal pain : no dysuria Integumentary: no rash Allergy: no hives Musculoskeletal: no extremity pain or swelling Neurological: no numbness/tingling, no weakness MEDICATIONS: I agree with the patient medications as charted by the RN. ALLERGIES: I agree with the allergies as charted by the RN. PAST MEDICAL HISTORY/PAST SURGICAL HISTORY: Reviewed and agree as charted by RN. SOCIAL HISTORY: Reviewed and agree as charted by RN. FAMILY HISTORY: No significant familial comorbid conditions directly related to patient complaint EXAM: Reviewed vital signs as charted by RN. CONSTITUTIONAL: Alert and oriented and responds appropriately to questions. Well-appearing; well-nourished HEAD: Normocephalic; atraumatic EYES: PERRL; Conjunctivae clear, sclerae non-icteric ENT: normal nose; no rhinorrhea; moist mucous membranes; pharynx without lesions noted, no uvula edema or deviation, no tonsillar hypertrophy, phonation normal NECK: Supple without meningismus; non-tender; no cervical lymphadenopathy, no masses CARD: RRR; no murmurs, no clicks, no rubs, no gallops; symmetric distal pulses RESP: Normal chest excursion without splinting or tachypnea; breath sounds clear and equal bilaterally; no wheezes, no rhonchi, no rales, pulse oximetry 99% on room air not hypoxic ABD/GI: Normal bowel sounds; non-distended; soft, moderate tenderness in the right upper quadrant with guarding; no palpable organomegaly or masses. BACK: The back appears normal and is non-tender to palpation, there is no CVA tenderness EXT: Normal ROM in all joints; non-tender to palpation; no cyanosis, no effusions, no edema SKIN: Normal color for age and race; warm; dry; good turgor; no acute lesions noted NEURO: Moves all extremities equally; Motor and sensory function intact PSYCH: The patient's mood and manner are appropriate. Grooming and personal hygiene are appropriate. MDM: 24-year-old female 3 days of constant right upper quadrant pain with nausea vomiting. Has had some chills no fever. No shortness of breath or chest pain. We will initially evaluate for cholelithiasis or cholecystitis. She has no right lower quadrant pain suggesting appendicitis at this time TRAVEL OUTSIDE OF THE [place] IN LAST 30 DAYS: No - Related Data Allergies/Adverse Reactions: No Known Allergies Allergy (Verified 03/03/19 00:36) Past Medical History - Social History Smoking Status: Current Every Day Smoker Chew tobacco use (# tins/day): No Frequency of alcohol use: None Drug Abuse: None Family History: Reviewed & Not Pertinent Renal/ Medical History: Denies: Hx Peritoneal Dialysis GI Medical History: Reports: Hx Gastroesophageal Reflux Disease Musculoskeletal Medical History: Reports Hx Musculoskeletal Trauma Psychiatric Medical History: Reports: Hx Anxiety, Hx Depression Traumatic Medical History: Reports: Hx Fractures - Toe Past Surgical History: Reports: Hx Oral Surgery - Dental surgery - Immunizations Hx Diphtheria, Pertussis, Tetanus Vaccination: Yes Physical Exam - Vital signs Vitals: Temp Pulse Resp BP Pulse Ox 98.6 F 91 16 104/50 L 99 02/15/20 09:29 02/15/20 09:29 02/15/20 09:29 02/15/20 09:29 02/15/20 09:29 Course - Re-evaluation Re-evalutation: 02/15/20 12:25 Notified by nursing that patient had told him that she is . I went and spoke with the patient about this. She states that her last menstrual cycle was mid December she did have a positive test at home 1 month ago. This now puts ectopic into the differential. I will add pelvic ultrasound and labs. 02/15/20 15:02 Ultrasound does not show specific abnormal findings. 6-week IUP, gallbladder study negative, no hydronephrosis on the right. Clinically she likely has pyelonephritis. Urine shows positive nitrites. Will add urine culture. Spoke with Dr. Solis [facility] given the patient's , as she has no hydronephrosis can likely be treated with oral antibiotics after Rocephin here and they will follow the culture. 02/15/20 15:13 I spoke with the patient at length about her findings. She is in agreement with the plan of care - Vital Signs Vital signs: Temp Pulse Resp BP Pulse Ox 98.6 F 91 16 104/50 L 99 02/15/20 09:40 02/15/20 09:29 02/15/20 09:29 02/15/20 09:29 02/15/20 09:29 - Laboratory Result Diagrams: 02/15/20 12:15 02/15/20 12:15 Laboratory results interpreted by me: 02/15/20 02/15/20 12:15 13:35 BUN 4 L Creatinine 0.51 L ALT 36 H Lipase 20.2 L Beta HCG, Quant 53054.00 H Urine Protein 30 H Urine Blood SMALL H Urine Nitrite POSITIVE H Ur Leukocyte Esterase MODERATE H Urine HCG, Qual POSITIVE H Discharge - Discharge Clinical Impression: Acute pyelonephritis in first trimester, antepartum Qualifiers: Weeks of gestation: less than 8 weeks Qualified Code(s): Z3A.01 - Less than 8 w eeks gestation of Condition: Stable Disposition: HOME, SELF-CARE Additional Instructions: Take the medications as prescribed no driving if taking narcotics for pain. Your evaluation today suggests that you have a kidney infection on the right. If you develop fever or have worsening or uncontrolled pain at home follow-up with [facility] or return to the emergency department for reevaluation. Your ultrasound shows approximately a 6-week gestation that is in the uterus. Prescriptions: Cephalexin Monohydrate [Keflex 500 mg Capsule] 500 mg PO Q6H 10 Days #40 capsule Hydrocodone/Acetaminophen [[place] 5-325 mg Tablet] 1 tab PO Q4 PRN #15 tablet PRN Reason: Ondansetron [Zofran Odt 4 mg Tablet] 1 - 2 tab PO Q4H PRN #15 tab.rapdis PRN Reason: For Nausea/Vomiting Referrals: SINCERE HANNA MD [ACTIVE STAFF] - Follow up as needed
[2020-02-15] MEDS ORDERED: ONDANSETRON 4 MG TAB.RAPDIS PO ONE (12:23)
[2020-02-15 12:36] LABS: ABSOLUTE EOSINOPHILS # (AUTO) 0.1 10^3/uL (0.0-0.6); ABSOLUTE LYMPHOCYTES (AUTO) 1.8 10^3/uL (0.5-4.7); ABSOLUTE MONOCYTES (AUTO) 0.3 10^3/uL (0.1-1.4); ABSOLUTE NEUT (AUTO) 4.1 10^3/uL (1.7-8.2); BASOPHILS % (AUTO) 0.4 % (0-2); EOSINOPHILS % (AUTO) 1.5 % (0-6); HEMATOCRIT 38.4 % (36.0-47.0); HEMOGLOBIN 13.3 g/dL (12.0-15.5); LYMPHOCYTES % (AUTO) 27.8 % (13-45); MEAN CORPUSCULAR HEMOGLOBIN 32.7 pg (27.0-33.4); MEAN CORPUSCULAR HGB CONC 34.5 g/dL (32.0-36.0); MEAN CORPUSCULAR VOLUME 95 fl (80-97); MONOCYTES % (AUTO) 5.3 % (3-13); PLATELET COUNT 393 10^3/uL (150-450); RED BLOOD COUNT 4.05 10^6/uL (3.72-5.28); RED CELL DISTRIBUTION WIDTH 12.6 % (11.5-14.0); TOTAL CELLS COUNTED % (AUTO) 100 %; WHITE BLOOD COUNT 6.3 10^3/uL (4.0-10.5)
[2020-02-15 13:03] LABS: ALBUMIN 4.1 g/dL (3.5-5.0); ALKALINE PHOSPHATASE 114 U/L (38-126); ANION GAP 8 (5-19); ASPARTATE AMINO TRANSFERASE 25 U/L (14-36); BILIRUBIN,DIRECT 0.3 mg/dL (0.0-0.4); BILIRUBIN,TOTAL 0.8 mg/dL (0.2-1.3); BLOOD UREA NITROGEN 4 mg/dL (7-20); CALCIUM 9.9 mg/dL (8.4-10.2); CARBON DIOXIDE 25 mmol/L (22-30); CHLORIDE 105 mmol/L (98-107); GLUCOSE 95 mg/dL (75-110); TOTAL PROTEIN 7.1 g/dL (6.3-8.2)
[2020-02-15 14:03] LABS: APPEARANCE,URINE CLOUDY; BILIRUBIN,URINE NEGATIVE (NEGATIVE); GLUCOSE, URINE NEGATIVE (NEGATIVE); KETONES,URINE NEGATIVE (NEGATIVE); LEUKOCYTE ESTERASE,URINE MODERATE (NEGATIVE); NITRITE,URINE POSITIVE (NEGATIVE); PROTEIN,URINE 30 mg/dL (NEGATIVE); URINE SPECIFIC GRAVITY 1.018; UROBILINOGEN,URINE NEGATIVE mg/dL (<2.0)
[2020-02-15 14:08] LABS: ADD MANUAL MICROSCOPIC YES; COLOR,URINE DARK YELLOW
[2020-02-15 14:09] LABS: BACTERIA,URINE 4+ /HPF; WBC,URINE >100 /HPF
--- NOTE | 2020-02-15 14:22 | RADIOLOGY REPORT (SQ) ---
EXAM DESCRIPTION: U/S ABDOMEN LIMITED W/O DOP IMAGES COMPLETED DATE/TIME: 02/15/2020 2:09 pm REASON FOR STUDY: RUQ pain COMPARISON: 2014 TECHNIQUE: Dynamic and static grayscale images acquired of the abdomen and recorded on PACS. Shawo natividad selected color Doppler and spectral images recorded. LIMITATIONS: None. FINDINGS: PANCREAS: No masses. Visualized pancreatic duct normal caliber. LIVER: No masses. Echotexture normal. LIVER VASCULATURE: Normal directional flow of the main portal vein and hepatic veins. GALLBLADDER: No stones. Normal wall thickness. No pericholecystic fluid. ULTRASOUND-DETECTED MARTINEZ'S SIGN: Negative. INTRAHEPATIC DUCTS AND COMMON DUCT: CBD and intrahepatic ducts normal caliber. No filling defects. AORTA: No aneurysm. RIGHT KIDNEY: Normal size, 13.7 cm. Normal echogenicity. No solid or suspicious masses. No hydroneph rosis. No calcifications. PERITONEAL AND RIGHT PLEURAL SPACE: No ascites or effusions. OTHER: No other significant findings. IMPRESSION: NORMAL RIGHT UPPER QUADRANT ULTRASOUND. TECHNICAL DOCUMENTATION: JOB ID: [id number] 2010 [email or web address]- All Rights Reserved Reading location - IP/workstation name: [email or web address]
--- NOTE | 2020-02-15 14:26 | RADIOLOGY REPORT (SQ) ---
EXAM DESCRIPTION: U/S OB TRANSVAG W/DOPPLER IMAGES COMPLETED DATE/TIME: 02/15/2020 2:09 pm REASON FOR STUDY: right side abd pain COMPARISON: None. TECHNIQUE: Transvaginal static and realtime grayscale images acquired of the pelvis. Additional tomas cted spectral and color Doppler images recorded. All images stored on PACs. [facility],[address]44 CLINICAL DATES: LMP 01/05/2020 8 weeks 1 day LIMITATIONS: None. FINDINGS: FETUS: Single Living intrauterine . ULTRASOUND EGA: 6 weeks 3 days ULTRASOUND ROMAIN: 10/07/2020 EFW: Not applicable less than 20 weeks. CRL: 0.6 cm FHR: 113 beats per minute. SURVEY: Too early to assess. AMNIOTIC FLUID: Adequate amount. PLACENTA: Not yet developed due to early gestation. SUBCHORIONIC BLEED: No SIZE OF BLEED: Not applicable. UTERUS: No masses. No anomalies. CERVICAL LENGTH: 3.4 cm. Closed. RIGHT ADNEXA: Normal ovary with normal vascular flow. 3.7 x 1.9 x 2.4 cm. No adnexal free fluid. No adnexal masses. LEFT ADNEXA: Normal ovary with normal vascular flow. 4.3 x 2.5 x 2.1 cm. No adnexal free fluid. No adnexal masses. FREE FLUID: None. OTHER: No other significant finding. IMPRESSION: LIVING INTRAUTERINE . EGA 6 weeks 3 days. Trimester of : First trimester - 0 to 13 weeks. TECHNICAL DOCUMENTATION: JOB ID: [id number] 2010 [employer]- All Rights Reserved rev Reading location - IP/workstation name: [email or web address]
[2020-02-15] MEDS ORDERED: MORPHINE SULFATE 10 MG/ML INJ IV ONE (14:41)
[2020-02-15] MEDS ORDERED: CEFTRIAXONE 1 GM/D5W RTU 1 GM/50 ML RTUPB IV ONE (14:45)
[2020-02-15 17:17] VITALS: BP 99/48
== END 2020-02-15 17:18 | disposition home or self-care (01) ==
LOC: ER 09:24
DX: O23.01 Infections of kidney in pregnancy, first trimester (principal); O26.891 Other specified pregnancy related conditions, first trimester; R10.11 Right upper quadrant pain; M54.5 Low back pain; M54.9 Dorsalgia, unspecified; O21.9 Vomiting of pregnancy, unspecified; O99.331 Smoking (tobacco) complicating pregnancy, first trimester; Z3A.01 Less than 8 weeks gestation of pregnancy
CPT/HCPCS: 99285; 96375; 96365; 86900; 86901; 36415; 87040; 87086; 84702; 83690; 85025; 81025; 87088; 80053; 81001; 87186; 76817; 76705; 93976; S0119; J2270; J0696

== ENCOUNTER 2020-04-19 00:03 | Emergency (ER) | payer SELFPAY ==
[2020-04-19 00:22] VITALS: BP 132/67
[2020-04-19] MEDS ORDERED: ACETAMINOPHEN 325 MG TABLET PO ONE (00:28)
--- NOTE | 2020-04-19 00:32 | ER Document Report ---
HPI - HPI Patient complains to provider of: Left hand injury Time Seen by Provider: 04/19/20 00:24 Onset: This evening Onset/Duration: Gradual Quality of pain: Achy Pain Level: 5 Context: Patient states that she had been drinking alcohol yesterday and she complains of left wrist and hand pain. Patient is right-hand dominant. Patient reports that she had been drinking alcohol and is uncertain of what may have happened. Patient thinks she might possibly have fallen although is uncertain. Patient states that she is unable to extend the left wrist beyond the neutral position. Associated Symptoms: Other - Left wrist, hand pain Exacerbated by: Movement Relieved by: Denies Similar symptoms previously: No Recently seen / treated by doctor: No - ROS ROS below otherwise negative: Yes Systems Reviewed and Negative: Yes All other systems reviewed and negative - GASTROINTESTINAL Gastrointestinal: DENIES: Nausea - MUSCULOSKELETAL Musculoskeletal: REPORTS: Extremity pain - DERM Skin Color: Normal Skin Problems: None Past Medical History - General Information source: Patient - Social History Smoking Status: Current Every Day Smoker Frequency of alcohol use: Occasional Drug Abuse: None Occupation: None Family History: Reviewed & Not Pertinent Renal/ Medical History: Denies: Hx Peritoneal Dialysis GI Medical History: Reports: Hx Gastroesophageal Reflux Disease Musculoskeletal Medical History: Reports Hx Musculoskeletal Trauma Psychiatric Medical History: Reports: Hx Anxiety, Hx Depression Traumatic Medical History: Reports: Hx Fractures - Toe Past Surgical History: Reports: Hx Oral Surgery - Dental surgery - Immunizations Hx Diphtheria, Pertussis, Tetanus Vaccination: Yes Vertical Provider Document - CONSTITUTIONAL Agree With Documented VS: Yes Exam Limitations: No Limitations General Appearance: WD/WN, No Apparent Distress - INFECTION CONTROL TRAVEL OUTSIDE OF THE [place] IN LAST 30 DAYS: No - HEENT HEENT: Atraumatic, Normocephalic - NECK Neck: Normal Inspection, Supple - RESPIRATORY Respiratory: No Respiratory Distress - CARDIOVASCULAR Cardiovascular: Regular Rate Pulses: Normal: Radial - MUSCULOSKELETAL/EXTREMETIES Musculoskeletal/Extremeties: MAEW, Tender - Tenderness to the left wrist, and overlying the left fourth metacarpal, patient does have anatomical snuffbox tenderness. No edema or deformity.. negative: Eccymosis - NEURO Level of Consciousness: Awake, Alert, Appropriate Notes: Patient unable to extend left wrist beyond neutral position due to discomfort. - DERM Integumentary: Warm, Dry Course - Re-evaluation Re-evalutation: 10/30/20 01:56 No acute fracture noted on x-ray although patient does have tenderness at anatomical snuffbox. Will immobilized with thumb spica and referred to orthopedics for further evaluation. - Vital Signs Vital signs: Temp Pulse Resp BP Pulse Ox 98.6 F 101 H 20 132/67 H 98 04/19/20 00:20 04/19/20 00:20 04/19/20 00:20 04/19/20 00:20 04/19/20 00:20 - Diagnostic Test Radiology reviewed: Image reviewed, Reports reviewed Procedures - Immobilization Left Wrist Pre-Proc Neuro Vasc Exam: Normal Immobilizer type: Thumb spica Performed by: PCT Post-Proc Neuro Vasc Exam: Normal Alignment checked and good: Yes Discharge - Discharge Clinical Impression: Left wrist sprain Qualifiers: Encounter type: initial encounter Qualified Code(s): S63.502A - Unspecified sprain of left wrist, initial encounter Condition: Stable Disposition: HOME, SELF-CARE Instructions: Ice & Elevation ([facility]), Possible Hidden Fracture ([facility]), Splint Precautions ([facility]), Wrist Sprain ([facility]) Additional Instructions: Return immediately for any new or worsening symptoms Followup with your primary care provider, call tomorrow to make a followup appointment It is possible that you may have a hidden fracture to the wrist area. Follow-up with orthopedics for further evaluation, call tomorrow to make an appointment. Prescriptions: Naproxen [Naprosyn 250 Nmg Tablet] 1 tab PO BID #14 tablet Referrals: [facility] [Provider Group] - Follow up as needed
--- NOTE | 2020-04-19 01:42 | RADIOLOGY REPORT (SQ) ---
EXAM DESCRIPTION: XR HAND 3 OR MORE VIEWS COMPLETED DATE/TME: 04/19/2020 00:27 CLINICAL HISTORY: 25 years, Female, ?fall, +ETOH, L wrist/hand pain COMPARISON: None. FINDINGS: 3 views of the left hand. No acute fracture or dislocation. Normal osseous mineralization. No radiopaque foreign bodies. IMPRESSION: 1. No acute fracture identified. copyright 2010 [employer]- All Rights Reserved
[2020-04-19] MEDS ORDERED: HYDROCODONE/ACETAMINOPHEN 5-325 MG (6 TAB/ER DISP) PO PRN (01:56)
== END 2020-04-19 02:20 | disposition home or self-care (01) ==
LOC: ER 00:03
DX: S63.502A Unspecified sprain of left wrist, initial encounter (principal); M79.642 Pain in left hand; W19.XXXA Unspecified fall, initial encounter; F17.200 Nicotine dependence, unspecified, uncomplicated
CPT/HCPCS: 99283